=== PATIENT | male | born 1960 | race Caucasian/White ===

== ENCOUNTER → 2021-01-01 | Outpatient (CLI) | payer BC, OTHER ==
[~2021-01-01] MED LIST: XARE20TA PO
== END ==
LOC: M LABSMTC 10:46
PROVIDERS: ATTEND Anesthesiology
DX: Z01.812 Encounter for preprocedural laboratory examination (principal); Z20.822 Contact with and (suspected) exposure to COVID-19

== ENCOUNTER 2021-01-06 11:55 | Day surgery (SDC) | payer BC, OTHER ==
[~2021-01-06] VITALS: Ht 175.3 cm; Wt 99.8 kg
[~2021-01-06 11:55] MED LIST changes: +NS 1,000 ML IV ONE
--- OUTSIDE RECORDS SUMMARY | 2021-01-06 12:02 | CCD | Continuity of Care Document ---
Author Author Oh MARTINEZ MD Organization Unknown Address [address] [place] [address] Phone [phone] Care Team Providers Care Wet Finisher Wool Name Role Phone Cory Shrestha M.D. [facility] [phone] Problems Active Problems Provider Date Obstructive sleep apnea syndrome PHIL Chan Onset: 04/06/2020 Social History Type Date Description Comments Sex Unknown ETOH Use 1 A Day Tobacco Use Start: Unknown Denies Smoking Recreational Drug Use Denies Drug Use Smoking Status Reviewed: 04/06/20 Denies Smoking Allergies, Adverse Reactions, Alerts Description No Known Drug Allergies Medications Active Medications SIG Qnty Indications Ordering Provide r Date CPAP Device 11cm PHIL Harding 04/02/2020 Xarelto 20mg Tablets 1 by mouth every day Unknown Immunizations CPT Code Status Date Vaccine Lot # [id number] Given 09/02/2019 Afluria, Quadrivalent, 0.5ml , [facility]# [id number] Given 09/09/2015 Influenza Virus Split 3 Yrs And Above For Intramuscular Use 00088 Given 11/13/2012 Influenza Virus Split 3 Yrs And Above For Intramuscular Use Vital Signs Date Vital Result Comment 12/22/2020 2:07pm BP Systolic 113 mmHg BP Diastolic 77 mmHg Heart Rate 74 /min Height 68 inches 5'8" Weight 226.25 lb BMI (Body Mass Index) 34.4 kg/m2 [place] Body Weight 154 lb Weight 102.627 kg BSA (Body Surface Area) 2.15 m2 04/06/2020 9:26am BP Systolic 118 mmHg BP Diastolic 88 mmHg Heart Rate 73 /min O2 % BldC Oximetry 97 % Body Temperature 97.5 F Height 68 inches 5'8" Weight 226.00 lb BMI (Body Mass Index) 34.4 kg/m2 [place] Body Weight 154 lb Weight 102.514 kg BSA (Body Surface Area) 2.15 m2 Results Description No Information Available Procedures Description No Information Available Medical Devices Description No Information Available Encounters Description No Information Available Assessments Description No Information Available Plan of Treatment Future Appointment(s):* 04/07/2021 9:00 am - PHIL Chan at [facility] Pulmonary/Thoracic 04/06/2020 - PHIL Chan* G47.33 Obstructive sleep apnea (adult) (pediatric) * * Follow up:* Follow up in 12 months with compliance report for MATEO-30 Cancel August appt. Functional Status Description No Information Available Mental Status Description No Information Available Referrals Refer to Reason for Referral Status Appt Date Nathan Martinez JR, MD COLONOSCOPY Created [address] [address] [phone]
--- OUTSIDE RECORDS SUMMARY | 2021-01-06 12:03 | CCD | Continuity of Care Document ---
Author Author Lab Schedule, Oh Ardon Organization Unknown Address [address] [address] Phone Unavailable Care Team Providers Care Senior Loan Officer Name Role Phone Cory Shrestha MD [facility] [phone] Problems Active Problems Provider Date Cerebral infarction due to embolism of cerebral arteries Celestino Shrestha M.D. Onset: 04/28/2015 Acute sinusitis Cory Shrestha M.D. Onset: 04/28/2015 Folliculitis Cory Shrestha M.D. Onset: 04/28/2015 Hyperlipidemia Cory Shrestha M.D. Onset: 04/28/2015 Obstructive sleep apnea syndrome Cory Shrestha M.D. Onset: 04/28/2015 Mixed hyperlipidemia Onset: 10/15/2008 Social History Type Date Description Comments Sex Unknown ETOH Use Consumes 1 beer per day Tobacco Use Start: Unknown Patient has never smoked Allergies, Adverse Reactions, Alerts Description No Known Drug Allergies Medications Active Medications SIG Qnty Indications Ordering Provide r Date Cpap Cory Shrestha M.D. 01/2019 Knee Brace/Cushion/L/XL/Left/Right Misc hinged right knee brace dx: m25.561 1units YANCI Moser 10/07/2018 Xarelto 20mg Tablets by mouth with evening meal everyday. 90tabs Cory Shrestha M.D. 06/20/2016 Immunizations CPT Code Status Date Vaccine Lot # [id number] Given 10/05/2014 Pneumovax 23 [id number] Given 08/11/2014 Influenza Virus Vaccine 72299 Given 09/08/2011 Influenza Virus Vaccine 20621 Refused 11/13/2013 Influenza Virus Vaccine 42392 Refused 05/20/2013 Adacel- Tetanus Diphtheria P ertussis (Age64 & Under) 33831 Refused 11/12/2012 Influenza Virus Vaccine Vital Signs Date Vital Result Comment 11/05/2020 12:58pm BP Systolic 110 mmHg BP Diastolic 74 mmHg Heart Rate 70 /min Height 69 inches 5'9" Weight 220.00 lb BMI (Body Mass Index) 32.5 kg/m2 05/05/2020 2:03pm BP Systolic 132 mmHg BP Diastolic 70 mmHg Heart Rate 68 /min Height 69 inches 5'9" Weight 224.00 lb BMI (Body Mass Index) 33.1 kg/m2 Results Test Acquired Date Facility Test Result H/L Range Note Laboratory test finding 11/04/2020 [facility] F[facility] And Director: [place] [address] [phone] PSA 8.41 ng/mL High <4.00 1 Complete Blood Count 11/04/2020 [facility] Founder And Director: Dr Albert [place] [address] [phone] WBC 7.7 x10*3/UL 4.1 - 10.9 RBC 5.41 x10*6/UL 4.20 - 6.30 Hemoglobin 15.8 g/dL 12.0 - 18.0 Hematocrit 46.6 % 37.0 - 51.0 MCV 86.1 fL 80.0 - 97.0 MCH 29.2 pg 26.0 - 32.0 MCHC 33.9 g/dL 31.0 - 38.0 RDW 12.8 % 11.6 - 13.7 PLT 312 x10*3/UL 140 - 440 MPV 7.8 FL 7.8 - 11.0 Lymph % 24.1 % 10.0 - 58.5 Mid % 6.2 % 1.7 - 9.3 Neut % 69.7 % 37.0 - 92.0 Lymph # 1.8 x10*3/UL 0.6 - 4.1 Mid # 0.5 x10*3/UL 0.1 - 0.6 Neut # 5.4 x10*3/UL 2.0 - 7.8 Comprehensive Chem Profile 11/04/2020 [facility] F[facility] And Director: Dr Albert [place] [address] [phone] Glucose 99 mg/dL 74 - 99 2 BUN 15 mg/dL 7 - 18 Creatinine 1.2 mg/dL 0.6 - 1.3 Sodium 143 mEq/L 136 - 145 Potassium 4.7 mEq/L 3.5 - 5.1 Chloride 106 mEq/L 98 - 107 Carbon Dioxide 26 mEq/L 21 - 32 Calcium 9.0 mg/dL 8.5 - 10.1 Alk. Phosphatase 81 mg/dL 46 - 116 Total Bilirubin 0.6 mg/dL 0.2 - 1.0 Ast (Sgot) 17 U/L 15 - 37 Alt (SGPT) 31 U/L 12 - 78 Albumin 4.1 g/dL 3.4 - 5.0 Total Protein 7.2 g/dL 6.4 - 8.2 A/G Ratio 1.32 CALC 1.00 - 1.90 GFR >= 60 mL/min >60 GFR >= 60 mL/min >60 3 Lipid Profile 11/04/2020 [facility] Co Founder And Director: [place] [address] [phone] Cholesterol 208 mg/dL High 131 - 200 Triglycerides 103 mg/dL 30 - 150 HDL Cholesterol 62 mg/dL High 35 - 60 LDL (Calculated) 125 CALC 50 - 159 1 NOTE: RESULT VERIFIED. This assay was performed on the Siemens Dimension EXL using the B- Galactosidase/CPRG methodology and should not be compared interchangeably with other methods. The PSA should not be used alone as a screening test for the presence or absence of malignant disease. 2 100-125 mg/dL PRE-DIABET ES/FASTING >126 mg/dL DIABETES/FASTING 3 CHRONIC KIDNEY DISEASE STAGI NG PER NKF STAGE I & II GFR >= 60 NORMAL TO MILDLY DECREASED STAGE III GFR 30-59 MODERATELY DECREASED STAGE IV GFR 15-29 SEVERELY DECREASED STAGE V GFR <15 VERY LITTLE GFR LEFT ESRD GFR <15 ON BRICKLAYER SUPERVISOR Procedures Date Code Description Status 12/09/2009 [id number] Colonoscopy Completed Medical Devices Description No Information Available Encounters Description No Information Available Assessments Date Code Description Provider 11/05/2020 E78.5 Hyperlipidemia, unspecified Eliseo Shrestha M.D. 11/05/2020 G47.33 Obstructive sleep apnea (adult) (pediatric) Cory Shrestha M.D. 11/05/2020 I63.40 Cerebral infarction due to embol ism of unspecified cerebral Cory F. White, M.D. 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 11/05/2020 R97.20 Elevated prostate specific antig en [PSA] Cory Shrestha M.D. Plan of Treatment Future Appointment(s):* 05/11/2021 1:00 pm - Cory Shrestha M.D. 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 I will see him again for his annual well visit in 6 months with CMP, lipids, CBC and PSA prior. If he has new problems or other issues sooner he will let us know. Will f/u on portal regarding PSA. Referral requests sent for hearing eval and ten-year follow up colonoscopy. Functional Status Description No Information Available Mental Status Description No Information Available Referrals Description No Information Available
--- OUTSIDE RECORDS SUMMARY | 2021-01-06 12:03 | CCD | Continuity of Care Document ---
Author Author Lab Schedule, Oh Ardon Organization Unknown Address [address] [address] Phone Unavailable Care Team Providers Care Archival Records Clerk Name Role Phone Cory Shrestha MD [facility] [phone] Problems Active Problems Provider Date Cerebral infarction [...] CPT Code Status Date Vaccine Lot # [id number] Given 10/05/2014 Pneumovax 23 81605 Given 08/11/2014 Influenza Virus Vaccine 34886 Given 09/08/2011 Influenza Virus Vaccine 45454 Refused 11/13/2013 Influenza Virus Vaccine 89324 Refused 05/20/2013 Adacel- Tetanus Diphtheria P ertussis (Age64 & Under) 86736 Refused 11/12/2012 Influenza Virus Vaccine Vital Signs Date Vital Result Comment 05/05/2020 2:03pm BP Systolic 132 mmHg BP Diastolic 70 mmHg Heart Rate 68 /min Height 69 inches 5'9" Weight 224.00 lb BMI (Body Mass Index) 33.1 kg/m2 11/04/2019 2:02pm BP Systolic 128 mmHg BP Diastolic 70 mmHg Heart Rate 70 /min Height 69 inches 5'9" Weight 224.00 lb BMI (Body Mass Index) 33.1 kg/m2 Results Description No Information Available Procedures Date Code Description Status 12/09/2009 [id number] Colonoscopy Completed Medical Devices Description No Information Available Encounters Description No Information Available Assessments Description No Information Available Plan of Treatment Future Appointment(s):* 11/05/2020 1:00 pm - Cory [facility]rest[facility] M.[facility] at [facility] 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
--- OUTSIDE RECORDS SUMMARY | 2021-01-06 12:03 | CCD ---
Author Author [facility] Organization [facility] Address Unknown Phone Unavailable Care Team Providers Care Sock Turner Name Role Phone Mitchel Shrestha MD Unavailable Unavailable Mitchel Shrestha MD Unavailable Unavailable Mitchel Shrestha MD Unavailable Unavailable Mitchel Shrestha MD Unavailable Unavailable Mitchel Shrestha MD Unavailable Unavailable Mitchel Shrestha MD Unavailable Unavailable Mitchel Shrestha MD Unavailable Unavailable Mitchel Shrestha MD Unavailable Unavailable Mitchel Shrestha MD Unavailable Unavailable Mitchel Shrestha MD Unavailable Unavailable Mitchel Shrestha MD Unavailable Unavailable Mitchel Shrestha MD Unavailable Unavailable Mitchel Shrestha MD Unavailable Unavailable Mitchel Shrestha MD Unavailable Unavailable Mitchel Shrestha MD Unavailable Unavailable Mitchel Shrestha MD Unavailable Unavailable Mitchel Shrestha MD Unavailable Unavailable Mitchel Shrestha MD Unavailable Unavailable Mitchel Shrestha MD Unavailable Unavailable Mitchel Shrestha MD Unavailable Unavailable Mitchel Shrestha MD Unavailable Unavailable Mitchel Shrestha MD Unavailable Unavailable Mitchel Shrestha MD Unavailable Unavailable Mitchel Shrestha MD Unavailable Unavailable Mitchel Shrestha MD Unavailable Unavailable Mitchel Shrestha MD Unavailable Unavailable Mitchel Shrestha MD Unavailable Unavailable Mitchel Shrestha MD Unavailable Unavailable Mitchel Shrestha MD Unavailable Unavailable Mitchel Shrestha MD Unavailable Unavailable Mitchel Shrestha MD Unavailable Unavailable Mitchel Shrestha MD Unavailable Unavailable Mitchel Shrestha MD Unavailable Unavailable Mitchel Shrestha MD Unavailable Unavailable Mitchel Shrestha MD Unavailable Unavailable Mitchel Shrestha MD Unavailable Unavailable Mitchel Shrestha MD Unavailable Unavailable Mitchel Shrestha MD Unavailable Unavailable Mitchel Shrestha MD Unavailable Unavailable White, F Cory MD Unavailable Unavailable White, F Cory MD Unavailable Unavailable White, F Cory MD Unavailable Unavailable White, F Cory MD Unavailable Unavailable White, F Cory MD Unavailable Unavailable White, F Cory MD Unavailable Unavailable White, F Cory MD Unavailable Unavailable White, F Cory MD Unavailable Unavailable White, F Cory MD Unavailable Unavailable White, F Cory MD Unavailable Unavailable White, F Cory MD Unavailable Unavailable White, F Cory MD Unavailable Unavailable White, F Cory MD Unavailable Unavailable White, F Cory MD Unavailable Unavailable White, F Cory MD Unavailable Unavailable White, F Cory MD Unavailable Unavailable White, F Cory MD Unavailable Unavailable White, F Cory MD Unavailable Unavailable White, F Cory MD Unavailable Unavailable White, F Cory MD Unavailable Unavailable White, F Cory MD Unavailable Unavailable White, F Cory MD Unavailable Unavailable White, F Cory MD Unavailable Unavailable White, F Cory MD Unavailable Unavailable White, F Cory MD Unavailable Unavailable White, F Cory MD Unavailable Unavailable White, F Cory MD Unavailable Unavailable White, F Cory MD Unavailable Unavailable White, F Cory MD Unavailable Unavailable White, F Cory MD Unavailable Unavailable White, F Cory MD Unavailable Unavailable White, F Cory MD Unavailable Unavailable White, F Cory MD Unavailable Unavailable White, F Cory MD Unavailable Unavailable White, F Cory MD Unavailable Unavailable Dille, E Parris DDS Unavailable Unavailable Dille, E Parris DDS Unavailable Unavailable Dille, E Parris DDS Unavailable Unavailable Dille, E Parris DDS Unavailable Unavailable Re-disclosure Warning The records that you are about to access may contain information from federally-assisted alcohol or drug abuse programs. If such information is present, then the following federally mandated warning applies: This information has been disclosed to you from records protected by federal confidentiality rules (42 CFR part 2). The federal rules prohibit you from making any further disclosure of this information unless further disclosure is expressly permitted by the written consent of the person to whom it pertains or as otherwise permitted by 42 CFR part 2. A general authorization for the release of medical or other information is NOT sufficient for this purpose. The Federal rules restrict any use of the information to criminally investigate or prosecute any alcohol or drug abuse patient.The records that you are about to access may contain highly sensitive health information, the redisclosure of which is protected by Article 27-F of the [facility] Public Health law. If you continue you may have access to information: Regarding HIV / AIDS; Provided by facilities licensed or operated by the [facility] Office of Mental Health; or Provided by the [facility] Office for People With Developmental Disabilities. If such information is present, then the following [facility] mandated warning applies: This information has been disclosed to you from confidential records which are protected by state law. State law prohibits you from making any further disclosure of this information without the specific written consent of the person to whom it pertains, or as otherwise permitted by law. Any unauthorized further disclosure in violation of state law may result in a fine or [place] health care facility sentence or both. A general authorization for the release of medical or other information is NOT sufficient authorization for further disc losure. Family History Family Member Name Family Member Gender Family Member Status Date o f Status Description Data Source(s) Unknown Male Problem [facility] ([facility] Unknown Unknown Problem [facility] Unknown Female Problem [facility] ([facility]) Encounters Encounter Providers Location Date Indications Data Source(s ) Outpatient Attender: Cory Britt 11/05 12:00:00 PM EST [facility] ([facility] ) Outpatient Attender: Parris VO 07/21/2020 09:49:01 A M [facility] Outpatient Attender: Parris VO 07/07/2020 07:57:00 A M [facility] Outpatient Attender: Parris VO 07/06/2020 08:25:[address] [facility] Outpatient Attender: Parris VO 07/06/2020 07:28:[address] [facility] Outpatient Attender: Parris VO 07/05/2020 10:46:01 A M [facility] Outpatient Attender: Parris VO 07/01/2020 08:18:00 A M [facility] Outpatient Attender: Parris VO 06/25/2020 08:01:10 P M [facility] Outpatient Attender: Parris VO 01/30/2020 01:52:[address] [facility] Outpatient Attender: Parris Vigil DDS [facility] 01/30/2020 01:22:[address] [facility] Outpatient Attender: Parris Vigil DDS [facility] 01/16/2020 01:06:[address] [facility] Outpatient Attender: Parris Vigil DDS [facility] 01/15/2020 10:05:[address] [facility] Outpatient Attender: Parris Vigil DDS [facility] 01/15/2020 09:40:[address] [facility] Outpatient Attender: Parris Vigil DDS [facility] 01/14/2020 09:58:[address] [facility] Outpatient Attender: Parris Vigil DDS [facility] 01/14/2020 08:54:[address] [facility] Outpatient Attender: Parris Vigil DDS [facility] 01/05/2020 03:06:[address] [facility] Outpatient Attender: Parris Vigil DDS [facility] 01/05/2020 08:28:[address] [facility] Outpatient Attender: Parris Vigil DDS [facility] 01/05/2020 08:11:[address] [facility] Outpatient Attender: Parris Vigil DDS [facility] 01/05/2020 07:40:[address] [facility] Outpatient Attender: Parris Vigil DDS [facility] 01/05/2020 07:39:[address] [facility] Outpatient Attender: Parris Vigil DDS [facility] 01/05/2020 07:38:[address] [facility] Outpatient Attender: Parris Vigil DDS [facility] 01/05/2020 07:26:[address] [facility] Outpatient Attender: Parris Vigil DDS [facility] 11/24/2019 09:01:[address] [facility] Medications Medication Brand Name Start Date Product Form Dose Route Admi nistrative Instructions Pharmacy Instructions Status Indications Reaction Description Data Source(s) 17.5-3.13-1.6 gram 12/30/2020 12:00:00 AM EST recon soln 354 TAKE PER DOCTORS BOWEL PREP INSTRUCTIONS TAKE PER DOCTORS BOWEL PREP INSTRUCTIONS SOLD: 01/05/2021 [facility] 100 mg 04/29/2020 12:00:00 AM EDT capsule 2 TAKE TWO CAPSULES BY MOUTH ONCE TAKE TWO CAPSULES BY MOUTH ONCE SOLD: 04/29/2020 [facility] 20 mg 04/27/2020 12:00:00 AM EDT tablet 90 TAKE ONE TABLET BY MOUTH EVERY DAY WITH EVENING MEAL TAKE ONE TABLET BY MOUTH EVERY DAY WITH EVENING MEAL S OLD: 04/29/2020 [facility] 20 mg 04/27/2020 12:00:00 AM EDT tablet 90 TAKE ONE TABLET BY MOUTH EVERY DAY WITH EVENING MEAL TAKE ONE TABLET BY MOUTH EVERY DAY WITH EVENING MEAL S OLD: 11/18/2020 [facility] CPAP 04/02/2020 12:00:00 AM EDT active [facility] ([facility]) Insurance Providers Payer name Policy type / Coverage type Policy ID Covered green party ID Covered green party's relationship to [place] Policy [place] Plan Information [employer] [id number] SP [id number] BCBS EMPIRE TEETEE DIV [id number] SP [id number] UNITED [employer] [id number] SP [id number] BCBS EMPIRE TEETEE DIV [id number] SP [id number] GHI P [id number] S [id number] GHI P [id number] S [id number] D Group Health Preferred S [id number] S [id number] [employer] [place] [employer] [id number] Self [id number] [employer] [place] [employer] [id number] Self [id number] EMPIRE [id number] Patient [id number] BCBS [facility] [place] [id number] Patient [id number] [employer] [place] [employer] [id number] Self [id number] [place] Plan Health Maintenance Organization (HMO) [id number] Self [id number] [place] [employer] Health Maintenance Organization (HMO) [id number] Self [id number] [employer] O [id number] S [id number] [employer] [place] [employer] Self [employer] [place] Commercial Self Emp/United Healthcare Commercial Self [id number] Problems, Conditions, and Diagnoses Code Display Name Description Problem Type Effective Dates Data Source(s) [id number] Obstructive sleep apnea syndrome Obstructive sle ep apnea syndrome Problem 04/06/2020 12:00:00 AM EDT [facility] ([facility]) Results ID Date Data Source [id number] 01/01/2021 11:00:00 AM EST [facility] Name Value Range Interpretation Code Description Data Armida rce(s) Supporting Document(s) SARS coronavirus 2 RNA Not Detected [facility] [place] This lab was ordered by [facility] and reported by [facility]. ID Date Data Source [id number] 11/04/2020 11:02:00 AM EST [facility] ([facility] Name Value Range Interpretation Code Description Data Armida rce(s) Supporting Document(s) Prostate specific Ag [Mass/volume] in Serum or Plasma 8.41 [facility] ([facility]) ID Date Data Source [id number] 11/04/2020 08:25:00 AM EST [facility] ([facility]) Name Value Range Interpretation Code Description Data Armida rce(s) Supporting Document(s) Prostate specific Ag [Mass/volume] in Serum or Plasma 8.41 ng/mL [facility] ([facility]) NOTE: RESULT VERIFIED. This assay was performed on the Siemens Zipzoom EXL using the B- Galactosidase/CPRG methodology and should not be compared interchangeably with other methods. The PSA should not be used alone as a screening test for the presence or absence of malignant disease. ID Date Data Source [id number] 11/04/2020 08:24:00 AM EST [facility] ([facility]) Name Value Range Interpretation Code Description Data Armida rce(s) Supporting Document(s) Triglyceride [Mass/volume] in Serum or Plasma 103 mg/dL 30-150 [facility] ([facility]) Cholesterol [Mass/volume] in Serum or Plasma 208 mg/dL 131-200 [facility] ([facility]) Cholesterol in LDL [Mass/volume] in Serum or Plasma by calcu lation 125 CALC 50-159 [facility] ([facility]) Cholesterol in HDL [Mass/volume] in Serum or Plasma 62 mg/dL 35-60 [facility] ([facility]) ID Date Data Source [id number] 11/04/2020 08:24:00 AM EST [facility] ([facility]) Name Value Range Interpretation Code Description Data Armida rce(s) Supporting Document(s) Glucose [Mass/volume] in Serum or Plasma 99 mg/dL 74-99 [facility] ([facility]) 100-125 mg/dL PRE-DIABETES/FASTING >126 mg/dL DIABETES/FASTING Urea nitrogen [Mass/volume] in Serum or Plasma 15 mg/dL 7-18 [facility] ([facility]) Potassium [Moles/volume] in Serum or Plasma 4.7 meq/L 3.5-5.1 [facility] ([facility]) Creatinine 1.2 mg/dL 0.6-1.3 [facility] ([facility]) Sodium [Moles/volume] in Serum or Plasma 143 meq/L 136-145 [facility] ([facility]) Chloride [Moles/volume] in Serum or Plasma 106 meq/L 98-107 [facility] ([facility]) Calcium [Mass/volume] in Serum or Plasma 9.0 mg/dL 8.5-10.1 [facility] ([facility]) Carbon dioxide, total [Moles/volume] in Serum or Plasma 26 meq/L 21 -32 [facility] ([facility]) Total Bilirubin 0.6 mg/dL 0.2-1.0 [facility] ([facility]) Aspartate aminotransferase [Enzymatic activity/volume] in Serum or Plasma 17 U/L 15-37 [facility] ([facility] ) Alkaline phosphatase isoenzyme [Units/volume] in Serum or Pl asma 81 mg/dL 46-116 [facility] ([facility]) Albumin [Mass/volume] in Serum or Plasma 4.1 g/dL 3.4-5.0 [facility] ([facility]) Alanine aminotransferase [Enzymatic activity/volume] in Seru m or Plasma 31 U/L 12-78 [facility] ([facility]) Proteinase 3 Ab [Units/volume] in Serum 7.2 g/dL 6.4-8.2 [facility] ([facility]) A/G Ratio 1.32 CALC 1.00-1.90 [facility]) Glomerular filtration rate/1.73 sq M pre dicted among blacks [Volume Rate/Area] in Serum or Plasma by Creatinine-based formula (MDRD) Laboratory test result [facility] ([facility]) <content>CHRONIC KIDNEY DISEASE STAGING PER NKF</content>
<content></content>
<content>STAGE I & II GFR >= 60 NORMAL TO MILDLY DECREASED</content>
<content>STAGE III GFR 30-59 MODERATELY DECREASED</content>
<content>STAGE IV GFR 15-29 SEVERELY DECREASED</content>
<content>STAGE V GFR <15 VERY LITTLE GFR LEFT</content>
<content>ESRD GFR <15 ON SSDS MK 2 ADVANCED OPERATOR</content>
<content></content> Glomerular filtration rate/1.73 sq M pre dicted among non-blacks [Volume Rate/Area] in Serum or Plasma by Creatinine-based formula (MDRD) Laboratory test result [facility] ([facility] ) ID Date Data Source [id number] 11/04/2020 08:24:00 AM EST [facility] ([facility]) Name Value Range Interpretation Code Description Data Armida rce(s) Supporting Document(s) Leukocytes [#/volume] in Blood by Automated count 7.7 x10*3/UL 4.1-10 .9 [facility] Hemoglobin [Mass/volume] in Blood 15.8 g/dL 12.0-18.0 [facility] ([facility]) Hematocrit [Volume Fraction] of Blood by Automated count 46.6 % 3 7.0-51.0 [email or web address] Erythrocytes [#/volume] in Blood by Automated count 5.41 x10*6/UL 4.2 0-6.30 [facility] MCHC 33.9 g/dL 31.0-38.0 [facility]) MCH 29.2 pg 26.0-32.0 [facility] MCV 86.1 fL 80.0-97.0 [facility] Erythrocyte distribution width [Ratio] by Automated count 12.8 % 11.6-13.7 [email or web address] Platelets [#/volume] in Blood by Automated count 312 x10*3/UL 140-440 [facility]) MPV 7.8 FL 7.8-11.0 [facility]) Mid % 6.2 % 1.7-9.3 [facility]) Lymph % 24.1 % 10.0-58.5 [facility]) Lymph # 1.8 x10*3/UL 0.6-4.1 [facility] ([facility]) Mid # 0.5 x10*3/UL 0.1-0.6 [facility] ([facility]) Neut % 69.7 % 37.0-92.0 [facility]) Neut # 5.4 x10*3/UL 2.0-7.8 [facility] ([facility]) ID Date Data Source [id number] 07/06/2020 07:28:47 AM EDT [facility] Patient History Medical History:Stroke i n 2003Blood disorder- patient does not remember its nameEmbolic stroke Patient has to discontinue Xaralta 3 days prior to dental treatment as per Dr. Cory ShresthaFamily History:No known FH Social/Personal History: Smoking Status: never smokerCurrent Problems: DENTAL YAZDANISM STATUS (ICD-V45.84) (GOT97-H88.811)Current Medications: * XERALTO Past Medical History:(reviewed - no changes required) Stroke in 2003Blood disorder- patient does not remember its nameEmbolic stroke Patient has to discontinue Xaralta 3 days prior to dental treatment as per Dr. Cory Shrestha Dental Chart: Procedures:Type - CDT Code - Description B - (D0274) Bitewings, 4 radiographic images (Performed by Hilaria Kelley) B - (D1110) Prophylaxis, adult (Performed by Hilaria Kelley) B - (D0120) Periodic oral evaluation - established patient (Performed by Parris Vigil DDS) B - (D0220) Intraoral, periapical, first radiographic image on Tooth # 25 (Performed by Hilaria Kelley) Existing:Type - CDT Code - Description[E] Bridge - Abutment On #24, #26[E] Bridge - [place] On #25[E] Missing - [place] and [place] On #25 Surface I Region XR[E] [place] - 3/4 Porcelain/Ceramic On #19 Chart Notes:gris (Jul 06 2020 8:16AM): [facility](-)cc-NonePatient had discontinued Xarelta 3 days prior to appt as per Dr. Cory ShresthaPatient had # 25 extracted and bridge put 24-25 a-26 and crown on # 19 at [facility] Additional PPE requirements due to COVID-19 in the dental setting, N95, surgical mask, hair covering, gown. Adult prophy -handscaled, flossed,polished, 4BWX, PA# 25OH-goo dPatient reported brushing twice/day, flossing regularly. Patient uses Listerine zero total careTrace marginal biofilm with trace marginal and interproximal calculus in sextant 5Used hand instrumentsTissues- mild bleeding on flossingOHI- brushing am pm, flossing and then using Listerine zero total care.Taught patient how to use threaders and superfloss under the bridge Patient was cooperativeNV- 6 months recallHilaria Kelley by gris (07/06/2020 7:47 AM): ; carlos (Jul 06 2020 8:24AM): [facility](-). CC: none. Reviewed Xrays. Exam: no caries detected. OCS: WNL, IO/ EO completed, No significant hard findings upon clinical exam.Additional PPE requirements due to COVID-19 in the dental setting, N95, surgical mask, hair covering, gown and shieldPt was cooperative. OHI given Referral: N/A NV:Hilaria Villa by carlos (07/06/2020 8:24 AM): Tooth Notes and Watches:- Tooth 19 Note: Patient lost a crown on #19Hilaria Kelley by gris (12/24/2018 1:50 PM): Refered to Dr. Lafleur for Hilaria Fontenot by bry er (12/27/2018 8:20 AM): Patient had a consult but the office wanted to do full exam. So patient Hilaria Wheat by gris (07/01/2019 8:15 AM): Assessment & Plan Medications:XERALTOAllergies:No Known Allergies (updated 07/06/2020) Name Value Range Interpretation Code Description Data Armida rce(s) Supporting Document(s) ID Date Data Source [id number] 05/04/2020 11:35:00 AM EDT [facility] ([facility]) Name Value Range Interpretation Code Description Data Armida rce(s) Supporting Document(s) Thyrotropin [Units/volume] in Serum or Plasma by Detec tion limit <= 0.05 mIU/L 0.58 uIU/mL 0.36-3.74 [facility] ([facility] ) ID Date Data Source [id number] 05/04/2020 11:35:00 AM EDT [facility] ([facility]) Name Value Range Interpretation Code Description Data Armida rce(s) Supporting Document(s) Cholesterol [Mass/volume] in Serum or Plasma 173 mg/dL 131-200 [facility] ([facility]) Cholesterol in HDL [Mass/volume] in Serum or Plasma 64 mg/dL 35-60 [facility] ([facility]) Cholesterol in LDL [Mass/volume] in Serum or Plasma by calcu lation 95 CALC 50-159 [facility] ([facility]) Triglyceride [Mass/volume] in Serum or Plasma 69 mg/dL 30-150 [facility] ([facility]) ID Date Data Source [id number] 05/04/2020 11:35:00 AM EDT [facility] ([facility]) Name Value Range Interpretation Code Description Data Armida rce(s) Supporting Document(s) Glucose [Mass/volume] in Serum or Plasma 93 mg/dL 74-99 [facility] ([facility]) 100-125 mg/dL PRE-DIABETES/FASTING >126 mg/dL DIABETES/FASTING Creatinine 1.2 mg/dL 0.6-1.3 [facility] Urea nitrogen [Mass/volume] in Serum or Plasma 19 mg/dL 7-18 [facility] ([facility]) Sodium [Moles/volume] in Serum or Plasma 142 meq/L 136-145 [facility] ([facility]) Potassium [Moles/volume] in Serum or Plasma 4.8 meq/L 3.5-5.1 [facility] ([facility]) Calcium [Mass/volume] in Serum or Plasma 8.9 mg/dL 8.5-10.1 [facility] ([facility]) Chloride [Moles/volume] in Serum or Plasma 106 meq/L 98-107 [facility] ([facility]) Carbon dioxide, total [Moles/volume] in Serum or Plasma 27 meq/L 21 -32 [facility] ([facility]) Alkaline phosphatase isoenzyme [Units/volume] in Serum or Pl asma 90 mg/dL 46-116 [facility] ([facility]) Aspartate aminotransferase [Enzymatic activity/volume] in Serum or Plasma 17 U/L 15-37 [facility] ([facility] ) Total Bilirubin 0.5 mg/dL 0.2-1.0 [facility] ([facility]) A/G Ratio 1.31 CALC 1.00-1.90 [facility]) Alanine aminotransferase [Enzymatic activity/volume] in Seru m or Plasma 29 U/L 12-78 [facility] ([facility]) Albumin [Mass/volume] in Serum or Plasma 4.2 g/dL 3.4-5.0 [facility] ([facility]) Proteinase 3 Ab [Units/volume] in Serum 7.4 g/dL 6.4-8.2 [facility] ([facility]) Glomerular filtration rate/1.73 sq M pre dicted among non-blacks [Volume Rate/Area] in Serum or Plasma by Creatinine-based formula (MDRD) Laboratory test result [facility] ([facility] ) Glomerular filtration rate/1.73 sq M pre dicted among blacks [Volume Rate/Area] in Serum or Plasma by Creatinine-based formula (MDRD) Laboratory test result [facility] ([facility]) <content>CHRONIC KIDNEY DISEASE STAGING PER NKF</content>
<content></content>
<content>STAGE I & II GFR >= 60 NORMAL TO MILDLY DECREASED</content>
<content>STAGE III GFR 30-59 MODERATELY DECREASED</content>
<content>STAGE IV GFR 15-29 SEVERELY DECREASED</content>
<content>STAGE V GFR <15 VERY LITTLE GFR LEFT</content>
<content>ESRD GFR <15 ON SSDS MK 2 ADVANCED OPERATOR</content>
<content></content> ID Date Data Source [id number] 05/04/2020 11:35:00 AM EDT [email or web address] Name Value Range Interpretation Code Description Data Armida rce(s) Supporting Document(s) Erythrocytes [#/volume] in Blood by Automated count 5.46 x10*6/UL 4.2 0-6.30 [facility] ([email or web address] Leukocytes [#/volume] in Blood by Automated count 8.5 x10*3/UL 4.1-10 .9 [facility] ([email or web address] Hemoglobin [Mass/volume] in Blood 15.5 g/dL 12.0-18.0 [facility] ([email or web address] MCHC 32.9 g/dL 31.0-38.0 [facility] ([facility]) Hematocrit [Volume Fraction] of Blood by Automated count 47.0 % 3 7.0-51.0 [email or web address] MCV 85.9 fL 80.0-97.0 [facility] ([facility]) MCH 28.3 pg 26.0-32.0 [facility] ([facility]) Platelets [#/volume] in Blood by Automated count 319 x10*3/UL 140-440 [email or web address] MPV 8.2 FL 7.8-11.0 [facility] ([facility]) Erythrocyte distribution width [Ratio] by Automated count 12.9 % 11.6-13.7 [facility] ([facility]) Neut % 68.7 % 37.0-92.0 [facility] ([facility]) Lymph # 2.0 x10*3/UL 0.6-4.1 [facility] ([facility]) Lymph % 23.6 % 10.0-58.5 [facility] Mid % 7.7 % 1.7-9.3 [facility] Neut # 5.8 x10*3/UL 2.0-7.8 [facility] ([facility]) Mid # 0.7 x10*3/UL 0.1-0.6 [facility] ([facility]) ID Date Data Source [id number] 05/04/2020 11:34:00 AM EDT [facility] ([facility]) Name Value Range Interpretation Code Description Data Armida rce(s) Supporting Document(s) Prostate specific Ag [Mass/volume] in Serum or Plasma 3.32 ng/mL [facility] ([facility]) This assay was performed on the my[employer]Note[employer] Dimension EXL using the B- Galactosidase/CPRG methodology and should not be compared interchangeably with other methods. The PSA should not be used alone as a screening test for the presence or absence of malignant disease. ID Date Data Source [id number] 01/30/2020 01:21:39 PM [facility] Current Problems: DENTAL YAZDANISM STA TUS (ICD-V45.84) (OZM70-F86.811)Current Medications: * XERALTO Dental Chart: Procedures:Type - CDT Code - Description C - (D2330) Resin, one surface, anterior on Tooth # 8 on Tooth Surface F (Performed by Parris Vigil DDS) Chart Notes:carlos (Jan 30 2020 1:51PM): [facility](N/C Per pt.)CC: None. NO LA Applied. Operative: #8-F Etch placed and rinsed, futurabond placed and light cured and A2 Voco composite material placed and light cured. Occlusion checked and polished. no complications. poi given to pt. pt. was cooperative. assisted by ROSANA. nv: perio recall Parris Vigil DDS by carlos (01/30/2020 1:51 PM): Tooth Notes and Watches:- Tooth 19 Note: Patient lost a crown on #19Hilaria Kelley by gris (12/24/2018 1:50 PM): Refered to Dr. Lafleur for Hilaria Fontenot by gris (12/27/2018 8:20 AM): Patient had a consult but the office wanted to do full exam. So patient refusedHilaria Kelley by gris (07/01/2019 8:15 AM): Note: There are Un-Billed (C Type) procedures on this document. Name Value Range Interpretation Code Description Data Armida rce(s) Supporting Document(s) ID Date Data Source [id number] 01/15/2020 09:23:55 AM [facility] Current Problems: DENTAL YAZDANISM STA TUS (ICD-V45.84) (PNA66-U29.811)Current Medications: * XERALTO Dental Chart: Procedures:Type - CDT Code - Description B - (D0220) Intraoral, periapical, first radiographic image on Tooth # 8 (Performed by Parris Vigil DDS) B - (D0140) Limited oral evaluation - problem focused on Tooth # 8 (Performed by Parris Vigil DDS) Treatments:Type - CDT Code - Description T - (D2335) Resin, 4 or more surfaces or involving incisal angle (anterior) on Tooth # 8 on Tooth Surface FILM (Performed by Parris Vigil DDS) Chart Notes:carlos (Jan 15 2020 10:04AM): S: CC:' a piece of my tooth chipped off sunday and i was not eating so I do not know what happened.' pt. points to #8, no pain purely costmetic per pt. is not bothering tongueO: RMHx (N/C Per Pt.) HPI: 3days PL: no pain BP: 135/90 p- 60A: DDS recommends new dangelo #8, cosmestic only. DX:fracture of restorative with loss of material P: pt. to return for dangelo #8 as no pain and only cos metic. Informed Pt about new pain management policy of the clinic regarding about narcoticAssisted By: JDNV: Dangelo #8- Parris Skaggs DDS by carlos (01/15/2020 10:04 AM): Tooth Notes and Watches:- Tooth 19 Note: Patient lost a crown on #19Hilaria Kelley by gris (12/24/2018 1:50 PM): Refered to Dr. Lafleur for Hilaria Fontenot by gris (12/27/2018 8:20 AM): Patient had a consult but the office wanted to do full exam. 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 Dental Chart: Procedures:Type - CDT Code - Description C - (D2332) Resin, 3 surfaces, anterior on Tooth # 8 on Tooth Surface LINDA (Performed by Parris Vigil DDS) Chart Notes:carlos (Jan 05 2020 3:05PM): [facility] (-) Per Pt. CC: none. No LA, Operative: # 8-LINDA,Etch, Futurabond, Light cured, A-2, Grandioso, light cured . Excavated with High Speed. Occlusion checked and polished.No complications. POI. Assisted by PD. Pt was cooperative. NV: P/Parris Andrade DDS by carlos (01/05/2020 3:05 PM): Tooth Notes and Watches:- Tooth 19 Note: Patient lost a crown on #19Hilaria Kelley by gris (12/24/2018 1:50 PM): Refered to Dr. Lafleur for Poloze Hilaria by gris (12/27/2018 8:20 AM): Patient had a consult but the office wanted to do full exam. So patient refusedWarren Hilaria by gris (07/01/2019 8:15 AM): Note: There are Un-Billed (C Type) procedures on this document.Assessment & Plan Medications:XERALTOAllergies:No Known Allergies (updated 01/05/2020) Curren t Problems: DENTAL YAZDANISM STATUS (ICD-V45.84) (HRY47-W45.811)Current Medications: * XERALTO Dental Chart: Procedures:Type - CDT Code - Description B - (D2332) Resin, 3 surfaces, anterior on Tooth # 8 on Tooth Surface LINDA (Performed by Parris Vigil DDS) Existing:Type - CDT Code - Description[D] (D2332) Resin, 3 surfaces, anterior Tooth Notes and Watches:- Tooth 19 Note: Patient lost a crown on #19Hilaria Kelley by gris (12/24/2018 1:50 PM): Refered to Dr. Lafleur for Hilaria Fontenot by gris (12/27/2018 8:20 AM): Patient had a consult but the office wanted to do full exam. So patient Hilaria Wheat by gris (07/01/2019 8:15 AM): Name Value Range Interpretation Code Description Data Armida rce(s) Supporting Document(s) ID Date Data Source [id number] 01/05/2020 07:31:48 AM [facility] Vital SignsBlood Pressure: 117/78 Patient History Medical History:Stroke in 2003Blood disorder- patient does not remember its nameEmbolic stroke Patient has to discontinue Xaralta 3 days prior to dental treatment as per Dr. Cory ShresthaFamily History:No known FH Social/Personal History: Smoking Status: never smokerCurrent Problems: DENTAL YAZDANISM STATUS (ICD-V45.84) (LVX14-A74.811)Current Medications: * XERALTO Past Medical History:(reviewed - no changes required) Stroke in 2003Blood disorder- patient does not remember its nameEmbolic stroke Patient has to discontinue Xaralta 3 days prior to dental treatment as per Dr. Cory Shrestha Dental Chart: Procedures:Type - CDT Code - Description B - (D0120) Periodic oral evaluation - established patient (Performed by Parris Vigil DDS) B - (D1110) Prophylaxis, adult (Performed by Hilaria Kelley) B - (D0274) Bitewings, 4 radiographic images (Performed by Hilaria Kelley) Treatments:Type - CDT Code - Description T - (D71 40) Extraction, erupted tooth or exposed root (elevation and/or forceps removal) on Tooth # 25 (Performed by Hilaria Kelley) T - (D2332) Resin, 3 surfaces, anterior on Tooth # 8 on Tooth Surface LINDA (Performed by Hilaria Kelley) Existing:Type - CDT Code - Description[E] [place] - 3/4 Porcelain/Ceramic On #9[E] Chipped On #8 Surface IF Chart Notes:gris (Jan 05 2020 8:15AM): [facility]- Embolic stroke Patient had discontinued Xaralta 5 days prior to cleaning , but Dr. Cory Shrestha only wanted it 3 days prior. Stressed that patient needs to discontinue 3 days prior not 5 . Med clearance scanned in documents . Patient interested in having missing crown # 19 redone.Patient had RCT done on # 25, but when the dentist (Mat[place]ord[place]armen Hoyos ) tried to remove temp crown, tooth broke. Patient only has retained roots left in that area. Dr. Vigil suggested extraction, as retained roots are covered with gums. Patient is willing to have it removed, but wants something to replace # 25, as he fears his teeth might karen ft towards empty space. Referred for consult for # 25 and 19 Adult prophy, 4BWX OH-goodPatient reported brushing once/day, not flossing regularly. Patient uses Listerine zero total careTrace marginal biofilm with trace marginal and interproximal calculus in sextant 5Tissues- mild bleeding on flossingOHI- brushing am pm, flossing and then using Listerine zero total carePatient was cooperativeNV-Filling # 8 Hilaria Kelley by gris (01/05/2020 8:15 AM): ; carlos (Jan 05 2020 8:27AM): [facility](-). CC: none. Reviewed Xrays. Exam: caries detected. OCS: WNL, IO/ EO completed, No significant hard findings upon clinical exam . # 25 has existing RCT with no crown. Gingiva is now covering the root of # 25. Recommend exo and replacement.Pt was cooperative.OHI givenReferral: # 19 crown, # 25 exo and replacementNV: # 8BHilaria goff by carlos (01/05/2020 8:27 AM): Tooth Notes and Watches:- Tooth 19 Note: Patient lost a crown on #19Hilaria Kelley by gris (12/24/2018 1:50 PM): Refered to Dr. Lafleur for Tonie Fontenot by gris (12/27/2018 8:20 AM): Patient had a consult but the office wanted to do full exam. So patient Hilaria Wheat by gris (07/01/2019 8:15 AM): Assessment & Plan Medications:XERALTOAllergies:No Known Allergies (updated 01/05/2020) Orders:Multi-Service Referral [[id number]] Name Value Range Interpretation Code Description Data Armida rce(s) Supporting Document(s) Procedure Vital Signs ID Date Data Source UNK Name Value Range Interpretation Code Description Data Source(s) Body surface area Derived from formula 2.15 m2 2.15 m2 [facility] ([facility]) Body weight 102.627 kg 102.627 kg [facility] ([facility]) [place] body weight 154 [lb_av] 154 [lb_av] [facility] T ([facility]) Body mass index (BMI) [Ratio] 34.4 kg/m2 34.4 k g/m2 [facility] ([facility]) Body weight 226.25 [lb_av] 226.25 [lb_av] [facility] T ([facility]) Body height 68 [in_i] 68 [in_i] [facility] ([facility]) 5'8" Heart rate 74 /min 74 /min [facility] ([facility]) Diastolic blood pressure 77 mm[Hg] 77 mm[Hg] [facility] ([facility]) Systolic blood pressure 113 mm[Hg] 113 mm[Hg] [facility] ([facility]) Body mass index (BMI) [Ratio] 32.5 kg/m2 32.5 k g/m2 [facility] Body weight 220.00 [lb_av] 220.00 [lb_av] [facility] ([facility]) Body height 69 [in_i] 69 [in_i] [facility] ([facility]) 5'9" Heart rate 70 /min 70 /min [facility] ([facility]) Diastolic blood pressure 74 mm[Hg] 74 mm[Hg] [facility] ([facility]) Systolic blood pressure 110 mm[Hg] 110 mm[Hg] [facility] Body mass index (BMI) [Ratio] 33.1 kg/m2 33.1 k g/m2 [facility] Body weight 224.00 [lb_av] 224.00 [lb_av] [facility] ([facility]) Body height 69 [in_i] 69 [in_i] [facility] ([facility]) 5'9" Heart rate 68 /min 68 /min [facility] ([facility]) Diastolic blood pressure 70 mm[Hg] 70 mm[Hg] [facility] ([facility]) Systolic blood pressure 132 mm[Hg] 132 mm[Hg] [facility] ([facility]) Body surface area Derived from formula 2.15 m2 2.15 m2 [facility] ([facility]) Body weight 102.514 kg 102.514 kg [facility] ([facility]) [place] body weight 154 [lb_av] 154 [lb_av] [facility] Body mass index (BMI) [Ratio] 34.4 kg/m2 34.4 k g/m2 [facility] ([facility]) Body weight 226.00 [lb_av] 226.00 [lb_av] [facility] Body height 68 [in_i] 68 [in_i] [facility] ([facility]) 5'8" Body temperature 97.5 [degF] 97.5 [degF] [facility] ([facility]) Oxygen saturation in Arterial blood by Pulse oximetry 97 % 97 % [facility] ([facility]) Heart rate 73 /min 73 /min [facility] ([facility]) Diastolic blood pressure 88 mm[Hg] 88 mm[Hg] [facility] ([facility]) Systolic blood pressure 118 mm[Hg] 118 mm[Hg] [facility] ([facility])
--- OUTSIDE RECORDS SUMMARY | 2021-01-06 12:03 | CCD | Continuity of Care Document ---
Author Author Lab Schedule, Oh [facility]don Organization Unknown Address [address] [address] Phone Unavailable Care Team Providers Care Patent Legal Assistant Name Role Phone Cory Shrestha MD AUTM [phone] Problems Active Problems Provider Date Cerebral infarction [...] CPT Code Status Date Vaccine Lot # [id number] Given 10/05/2014 Pneumovax 23 59993 Given 08/11/2014 Influenza Virus Vaccine 11823 Given 09/08/2011 Influenza Virus Vaccine 58204 Refused 11/13/2013 Influenza Virus Vaccine 11378 Refused 05/20/2013 Adacel- Tetanus Diphtheria P ertussis (Age64 & Under) 40518 Refused 11/12/2012 Influenza Virus Vaccine Vital Signs [...] H/L Range Note Laboratory test finding 11/04/2020 [facility] [employer] tika sullivan Metal Shaping Machine Operator: [place] [address] [phone] PSA 8.41 ng/mL High <4.00 1 Complete Blood Count 11/04/2020 [facility] [employer] Metal Shaping Machine Operator: [place] [address] [phone] WBC 7.7 x10*3/UL 4.1 - 10.9 RBC [...] 2.0 - 7.8 Comprehensive Chem Profile 11/04/2020 [facility] tika Browning Metal Shaping Machine Operator: [place] [address] [phone] Glucose 99 mg/dL 74 - 99 2 [...] 60 mL/min >60 3 Lipid Profile 11/04/2020 [facility] Metal Shaping Machine Operator: [place] [address] [phone] Cholesterol 208 mg/dL High 131 - 200 [...] LITTLE GFR LEFT ESRD GFR <15 ON CHEMISTRY ASSOCIATE Procedures Date Code Description Status 12/09/2009 [id number] Colonoscopy Completed Medical Devices Description No Information Available Encounters Description No Information Available Assessments Date Code Description Provider 11/05/2020 E78.5 Hyperlipidemia, unspecified Eliseo Shrestha M.D. 11/05/2020 G47.33 Obstructive sleep apnea (adult) (pediatric) Cory Shrestha M.D. 11/05/2020 I63.40 Cerebral infarction due to embol ism of unspecified cerebral Cory F. White, M.D. 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 11/05/2020 R97.20 Elevated prostate specific antig en [PSA] Cory Shrestha M.D. 11/04/2020 E78.5 Hyperlipidemia, unspecified Eliseo Shrestha M.D. 11/04/2020 E78.5 Hyperlipidemia, unspecified Lab Schedule 11/04/2020 Z79.01 intermediate (current) use of antic oagulants Cory Shrestha M.D. 11/04/2020 Z79.01 intermediate (current) use of antic oagulants Lab Schedule 11/04/2020 R97.20 Elevated prostate specific antig en [PSA] Cory Shrestha M.D. 11/04/2020 R97.20 Elevated prostate specific antig en [PSA] Lab Schedule Plan of Treatment Future Appointment(s):* 05/11/2021 1:00 pm - Cory Shrestha M.D. at [facility] 11/05/2020 - Cory Shrestha M.D.* E78.5 Hyperlipidemia, unspecified * G47.33 Obstructive sleep apnea (adult) (pediatric) * I63.40 Cerebral infarction due to embolism of unsp cerebral artery * Z79.01 intermediate (current) use of anticoagulants * R97.20 Elevated prostate specific antigen [PSA] * * Comments:* 1. Hyperlipidemia: Slightly increased. Will continue working on diet, exercise regimen and follow up appropriately.2. MATEO: Doing very well on CPAP. He has applied for a new CPAP machine. Follows with [facility].3. Cerebral infarction due to embolism of unspecified cerebral artery: No new Neurologic symptoms, doing well on Xarelto. Will avoid injury and follow up.4. intermediate (current) use of anticoagulants: No new bleeding issues. Will continue on Xarelto.5. Elevated prostate specific antigen [PSA]: PSA result is pending. It was elevated about 1 year ago and in April of this year it was stable. We will contact patient once PSA result is available and referral to Urology will be depend on his PSA level. We will continue to monitor. 6. Screening colonoscopy: His last colonoscopy was in November [address] Martinez. We will monitor.Ongoing Care: Patient will follow up on portal regarding PSA. Referral requests sent for hearing eval and ten-year follow up colonoscopy. I will see him again for his annual well visit in 6 months with CMP, lipids, CBC and PSA prior. If he has new problems or other issues sooner he will let us know. Functional Status Description No Information Available Mental Status Description No Information Available Referrals Refer to Dr Reason for Referral Status Appt Date Amp Urology GRADUATE RECRUITER CONSULT FOR ELEVATED PSA Sent [address] [place] [address] [phone] Nathan Martinez JR, MD CONSULT WITH DR MARTINEZ FOR SCREENING CO LONOSCOPY Sent [facility] General Surgery [address] [address] [phone]
--- OUTSIDE RECORDS SUMMARY | 2021-01-06 12:03 | CCD | Continuity of Care Document ---
Author Author Oh PALMER M.D. Organization Unknown Address [phone] [address] Phone [phone] Care Team Providers Care Wall Covering Installer Name Role Phone Cory Palmer MD AUTM [phone] Problems Active Problems Provider Date Cerebral infarction due to embolism of cerebral arteries Celestino Palmer M.D. Onset: 04/28/2015 Acute sinusitis Cory Palmer M.D. Onset: 04/28/2015 Folliculitis Cory Palmer M.D. Onset: 04/28/2015 Hyperlipidemia Cory Palmer M.D. Onset: 04/28/2015 Obstructive sleep apnea syndrome Cory Palmer M.D. Onset: 04/28/2015 Mixed hyperlipidemia Onset: 10/15/2008 Social History Type Date Description Comments Sex Unknown ETOH Use Consumes 1 beer per day Tobacco Use Start: Unknown Patient has never smoked Allergies, Adverse Reactions, Alerts Description No Known Drug Allergies Medications Active Medications SIG Qnty Indications Ordering Provide r Date Cpap Cory Palmer M.D. 01/2019 Knee Brace/Cushion/L/XL/Left/Right Misc hinged right knee brace dx: m25.561 1units YANCI Moser 10/07/2018 Xarelto 20mg Tablets by mouth with evening meal everyday. 90tabs Cory Palmer M.D. 06/20/2016 Immunizations CPT Code Status Date Vaccine Lot # [id number] Given 10/05/2014 Pneumovax 23 16743 Given 08/11/2014 Influenza Virus Vaccine 26429 Given 09/08/2011 Influenza Virus Vaccine 73290 Refused 11/13/2013 Influenza Virus Vaccine 46779 Refused 05/20/2013 Adacel- Tetanus Diphtheria P ertussis (Age64 & Under) 69028 Refused 11/12/2012 Influenza Virus Vaccine Vital Signs [...] H/L Range Note Laboratory test finding 11/04/2020 [facility] [employer] Representative tika sullivan Merchandise Planning Manager: [place] [address] [phone] PSA 8.41 ng/mL High <4.00 1 Complete Blood Count 11/04/2020 [facility] tika [place] Merchandise Planning Manager: Dr Albert [place] [address] [phone] WBC 7.7 x10*3/UL 4.1 - 10.9 RBC [...] 2.0 - 7.8 Comprehensive Chem Profile 11/04/2020 [facility] tika ayala Merchandise Planning Manager: Dr Albert [place] [address] [phone] Glucose 99 mg/dL 74 - 99 2 [...] 60 mL/min >60 3 Lipid Profile 11/04/2020 [facility] Merchandise Planning Manager: [place] [address] [phone] Cholesterol 208 mg/dL High 131 - 200 [...] LITTLE GFR LEFT ESRD GFR <15 ON FACILITY ENGINEER Procedures Date Code Description Status 12/09/2009 [id number] Colonoscopy Completed Medical Devices Description No Information Available Encounters Type Date Location Provider Dx Diagnosis Office Visit 11/05/2020 1:00p [facility] E78.5 Hyperlipidemia, unspecified G47.33 Obstructive sleep apnea (sadie lt) (pediatric) I63.40 Cerebral infarction due to e mbolism of unsp cerebral artery Z79.01 jail (current) use of a nticoagulants R97.20 Elevated prostate specific a ntigen [PSA] Assessments Date Code Description Provider 11/05/2020 E78.5 Hyperlipidemia, unspecified Eliseo Palmer M.D. 11/05/2020 G47.33 Obstructive sleep apnea (adult) (pediatric) Cory Palmer M.D. 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 11/05/2020 R97.20 Elevated prostate specific antig en [PSA] Cory Palmer M.D. 11/04/2020 E78.5 Hyperlipidemia, unspecified Eliseo Palmer M.D. 11/04/2020 E78.5 Hyperlipidemia, unspecified Lab Schedule 11/04/2020 Z79.01 jail (current) use of antic oagulants Cory Palmer M.D. 11/04/2020 Z79.01 jail (current) use of antic oagulants Lab Schedule 11/04/2020 R97.20 Elevated prostate specific antig en [PSA] Cory Palmer M.D. 11/04/2020 R97.20 Elevated prostate specific antig en [PSA] Lab Schedule Plan of Treatment Future Appointment(s):* 05/11/2021 1:00 pm - [facility] 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 Will avoid injury and follow up.4. jail (current) use of anticoagulants: No new bleeding [...] to Reason for Referral Status Appt Date Amp Urology TOBACCO FLAVORER CONSULT FOR ELEVATED PSA Sent [address] [place] [address] [phone] Nathan Martinez JR, MD CONSULT WITH DR MARTINEZ FOR SCREENIN G COLONOSCOPY Patient Notified 11/15/2020 [facility] General Surgery [address] [address] [phone]
--- OUTSIDE RECORDS SUMMARY | 2021-01-06 12:03 | CCD | Continuity of Care Document ---
Author Author Oh LUQUE MD Organization Unknown Address [address] [place] [address] Phone [phone] Care Team Providers Care Weather Algorithm Scientist Name Role Phone Cory Shrestha M.D. AUTM [phone] Problems Description No Information Available Social History Type Date Description Comments Sex Unknown Tobacco Use Start: Unknown Never Smoked Cigarettes ETOH Use Consumes 1 beer per day Allergies, Adverse Reactions, Alerts Description No Known Drug Allergies Medications Active Medications SIG Qnty Indications Ordering Provide r Date Xarelto 20mg Tablets Unknown Immunizations Description No Information Available Vital Signs Description No Information Available Results Test Acquired Date Facility Test Result H/L Range Note Laboratory test finding 11/04/2020 Outside Facility (315)- - PSA 8.41 High Procedures Description No Information Available Medical Devices Description No Information Available Encounters Description No Information Available Assessments Date Code Description Provider 12/02/2020 R97.20 Elevated prostate specific antig en [PSA] Henry Luque MD Plan of Treatment 12/02/2020 - Henry Luque MD* R97.20 Elevated prostate specific antigen [PSA] * Comments:* 60-year-old gentleman in otherwise good health on Xarelto for a CVA 10 years ago presents elevated PSA to 8.41 up from 3 in April and now 5.7 thousand 18. He is somewhat concerned about this. Like to repeat a PSA at his primary care which we will send. Explained to him that these are high enough numbers were further evaluation is almost certainly warranted. We discussed different options he like to obtain an MRI followed by fusion biopsy. We will see if we can obtain an MRI in [place] if not he will come down to [place] at which time we can do his rectal swab in preparation for surgery.We discussed in detail the risks, benefits and alternative to testing with PSA and other modalities. We discussed the false positive PSA results and the risk of over diagnosis of prostate cancer. We also discussed that PSA can also be elevated due to benign prostatic hyperplasia, prostatic inflammation, urinary tract infection and recent ejaculation. The patient's age range and good health the PSA blood test can detect prostate cancer at an early stage. I discussed the prostate needle biopsy with the patient which is performed to rule out prostate cancer in the setting of an abnormally elevated PSA. I discussed risks and benefits of prostate needle biopsy including risks of pain, bleeding and infection. Serious infection may occur in about 1-2% of patient's despite rectal swabs and culture directed antibiotics. Lastly, there is a potential of 20-30% false negative rate with prostate needle biopsy. We discussed obtaining a MRI of the prostate prior to proceeding with a prostate biopsy. I discussed the MRI of the prostate the patient and reviewed the evidence behind the MRI which has shown that MRI has a higher sensitivity for clinically aggressive prostate cancer than a standard ultrasound guided biopsy. I also discussed with him the potential possibility of a MRI trans rectal ultrasound fusion guided biopsy. I discussed with him that a negative MRI does not absolutely rule out prostate cancer although it is highly unlikely that he would have an aggressive prostate cancer with a negative MRI. The patient would like to proceed with MRI of the prostate prior to the prostate biopsy. He'll follow-up with me to review the results of MRI test. Functional Status Description No Information Available Mental Status Description No Information Available Referrals Description No Information Available
--- OUTSIDE RECORDS SUMMARY | 2021-01-06 12:03 | CCD | Continuity of Care Document ---
Author Author Oh PALMER M.D. Organization Unknown Address [address] [address] Phone [phone] Care Team Providers Care Medical Education Coordinator Name Role Phone Cory Palmer MD AUTM [phone] Problems Active Problems Provider Date Cerebral infarction [...] CPT Code Status Date Vaccine Lot # [id number] Given 10/05/2014 Pneumovax 23 52745 Given 08/11/2014 Influenza Virus Vaccine 46619 Given 09/08/2011 Influenza Virus Vaccine 53134 Refused 11/13/2013 Influenza Virus Vaccine 08853 Refused 05/20/2013 Adacel- Tetanus Diphtheria P ertussis (Age64 & Under) 78567 Refused 11/12/2012 Influenza Virus Vaccine Vital Signs [...] H/L Range Note Laboratory test finding 11/04/2020 [facility] tika sullivan Professor Of Social Work: [place] [address] [phone] PSA <pending> Complete Blood Count 11/04/2020 [facility] t[facility] [place] Professor Of Social Work: [place] [address] [phone] WBC 7.7 x10*3/UL 4.1 - 10.9 RBC [...] 2.0 - 7.8 Comprehensive Chem Profile 11/04/2020 [facility] tika [place] Professor Of Social Work: [place] [address] [phone] Glucose 99 mg/dL 74 - 99 1 BUN 15 mg/dL 7 - 18 Creatinine [...] mL/min >60 GFR >= 60 mL/min >60 2 Lipid Profile 11/04/2020 [facility] Professor Of Social Work: Dr Albert Boykin [place], [place] [id number] [phone] Cholesterol 208 mg/dL High 131 - 200 Triglycerides 103 mg/dL 30 - 150 HDL Cholesterol 62 mg/dL High 35 - 60 LDL (Calculated) 125 CALC 50 - 159 1 100-125 mg/dL PRE-DIABET ES/FASTING >126 mg/dL DIABETES/FASTING 2 CHRONIC KIDNEY DISEASE STAGI NG PER NKF STAGE I & II GFR >= 60 NORMAL TO MILDLY DECREASED STAGE III GFR 30-59 MODERATELY DECREASED STAGE IV GFR 15-29 SEVERELY DECREASED STAGE V GFR <15 VERY LITTLE GFR LEFT ESRD GFR <15 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 11/05/2020 G47.33 Obstructive sleep apnea (adult) (pediatric) Cory Palmer M.D. 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 11/05/2020 Z79.01 prison (current) use of antic oagulants Cory Palmer M.D. 11/05/2020 R97.20 Elevated prostate specific antig en [PSA] Cory Palmer M.D. 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
--- OUTSIDE RECORDS SUMMARY | 2021-01-06 12:03 | CCD | Continuity of Care Document ---
Author Author Lab Schedule, Oh Ardon Organization Unknown Address [address] [address] Phone Unavailable Care Team Providers Care Box Press Operator Name Role Phone Cory Shrestha MD AUTM [phone] Problems Active Problems Provider Date Cerebral infarction [...] CPT Code Status Date Vaccine Lot # [id number] Given 10/05/2014 Pneumovax 23 90545 Given 08/11/2014 Influenza Virus Vaccine 50964 Given 09/08/2011 Influenza Virus Vaccine 62788 Refused 11/13/2013 Influenza Virus Vaccine 49519 Refused 05/20/2013 Adacel- Tetanus Diphtheria P ertussis (Age64 & Under) 04347 Refused 11/12/2012 Influenza Virus Vaccine Vital Signs [...] H/L Range Note Laboratory test finding 11/04/2020 [facility] tika sullivan Shake Table Operator: [place] [address] [phone] PSA <pending> Complete Blood Count 11/04/2020 [facility] [place] Shake Table Operator: [place] [address] [phone] WBC 7.7 x10*3/UL 4.1 - 10.9 RBC [...] 2.0 - 7.8 Comprehensive Chem Profile 11/04/2020 [facility] [place] Shake Table Operator: [place] [address] [phone] Glucose 99 mg/dL 74 - 99 1 [...] 60 mL/min >60 2 Lipid Profile 11/04/2020 [facility] Shake Table Operator: [place] [address] [phone] Cholesterol 208 mg/dL High 131 - 200 [...] LITTLE GFR LEFT ESRD 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
[2021-01-06] MEDS ORDERED: propofoL 200 MG/20 ML VIAL As Ordered ONE (12:25)
[2021-01-06] MEDS ORDERED: LIDOCAINE 2% 100MG/5ML SDV (FOR ANES.) As Ordered ONE (12:25)
--- NOTE | 2021-01-06 13:23 | ROOR ---
Patient Name: Oh Jha Procedure Date: 01/06/2021 12:50 PM Date of : 1960 Age: 60 Room: [facility] Gender: Male Note Status: Finalized Procedure: Colonoscopy Indications: Screening for colorectal malignant neoplasm Providers: Nathan Martinez Jr, MD Referring MD: Cory Shrestha MD Requesting Provider: Medicines: Propofol per Anesthesia Complications: No immediate complications. Procedure: Pre-Anesthesia Assessment: - Prior to the procedure, a History and Physical was performed, and patient medications and allergies were reviewed. The patient is competent. The risks and benefits of the procedure and the sedation options and risks were discussed with the patient. All questions were answered and informed consent was obtained. Patient identification and proposed procedure were verified by the physician and the nurse in the pre-procedure area and in the procedure room. Mental Status Examination: alert and oriented. Airway Examination: normal oropharyngeal airway and neck mobility. Respiratory Examination: clear to auscultation. CV Examination: normal. ASA Grade Assessment: II - A patient with mild systemic disease. After reviewing the risks and benefits, the patient was deemed in satisfactory condition to undergo the procedure. The anesthesia plan was to use moderate sedation / analgesia (conscious sedation). Immediately prior to administration of medications, the patient was re-assessed for adequacy to receive sedatives. The heart rate, respiratory rate, oxygen saturations, blood pressure, adequacy of pulmonary ventilation, and response to care were monitored throughout the procedure. The physical status of the patient was re-assessed after the procedure. The Colonoscope was introduced through the anus and advanced to the cecum, identified by appendiceal orifice and ileocecal valve. The colonoscopy was performed without difficulty. The patient tolerated the procedure well. The quality of the bowel preparation was adequate. Findings: The rectum, recto-sigmoid colon, sigmoid colon, descending colon, transverse colon, cecum, appendiceal orifice and ileocecal valve appeared normal. A small polyp was found in the ascending colon. The polyp was removed with a jumbo cold forceps. Resection and retrieval were complete. Impression: - The rectum, recto-sigmoid colon, sigmoid colon, descending colon, transverse colon, cecum, appendiceal orifice and ileocecal valve are normal. - One small polyp in the ascending colon, removed with a jumbo cold forceps. Resected and retrieved. Recommendation: - Discharge patient to home (ambulatory). - Repeat colonoscopy in 5-10 years for surveillance based on pathology results. Procedure Code(s): --- Professional --- 75083, Colonoscopy, flexible; with biopsy, single or multiple Diagnosis Code(s): --- Professional --- Z12.11, Encounter for screening for malignant neoplasm of colon K63.5, Polyp of colon CPT copyright 2019 [employer]. All rights reserved. The codes documented in this report are preliminary and upon senior analyst programmer review may be revised to meet current compliance requirements. Nathan Martinez MD Nathan Martinez Jr, MD 01/06/2021 1:22:39 PM Electronically signed by Nathan Martinez Jr, MD Number of Addenda: 0 Note Initiated On: 01/06/2021 12:50 PM Estimated Blood Loss: Estimated blood loss: none.
[2021-01-06 13:45] VITALS: BP 130/83
== END 2021-01-06 13:51 | disposition home or self-care (01) ==
LOC: M OPP 11:55
PROVIDERS: ATTEND Surgery
DX: Z12.11 Encounter for screening for malignant neoplasm of colon (principal); K63.5 Polyp of colon; G47.30 Sleep apnea, unspecified; Z86.73 Personal history of transient ischemic attack (TIA), and cerebral infarction without residual deficits; Z79.01 Long term (current) use of anticoagulants

== ENCOUNTER → 2024-12-09 | Outpatient (REF) | payer OTHER, MEDICARE ==
[~2024-12-09] MED LIST changes: -NS 1,000 ML IV ONE
== END ==
LOC: M LAB REF 12:45
PROVIDERS: ATTEND Family Medicine
DX: C61 Malignant neoplasm of prostate (principal)